=== PATIENT | female | born 1990 | race Caucasian/White ===

== ENCOUNTER → 2016-12-17 | Outpatient (CLI) | payer OTHER ==
[~2016-12-17] MED LIST: AMT25 PO; LEVO100T7 PO; MELO15TA4 PO; OMEP40CA41 PO; VTMD PO; ZLF/50 PO
[2016-12-17 13:08] LABS: BASO % 0.1 %; BASO ABS # 0.01 K/uL (0-0.2); COMPLETE YES; EOS % 0.7 %; HEMATOCRIT 41.5 % (37-47); IG% 0.2 %; LYMPH % 25.4 %; LYMPH ABS # 2.17 K/uL (1.2-3.4); MEAN CELL VOLUME 94.1 fL (80-100); MEAN CORPUSCULAR HEMOGLOBIN 33.6 pg (25-34); MEAN CORPUSCULAR HGB CONC 35.7 g/dl (32-36); MEAN PLATELET VOLUME 11.1 fL (7.4-10.4); MONO % 5.5 %; NEUT % 68.1 %; PLATELET COUNT 206 K/uL (130-400); RED BLOOD COUNT 4.41 M/uL (4.2-5.4); WHITE BLOOD COUNT 8.54 K/uL (4.8-10.8)
[2016-12-17 13:20] LABS: ALT/SGPT 19 U/L (12-78); BLOOD UREA NITROGEN 8 mg/dl (7-18); BUN/CREATININE RATIO 13.3 (10-20); C-REACTIVE PROTEIN < 0.29 mg/dl (0-0.29); CALCIUM 9.5 mg/dl (8.5-10.1); CARBON DIOXIDE 25 mmol/L (21-32); CHLORIDE 106 mmol/L (98-107); CREATININE 0.57 mg/dl (0.60-1.20); GLUCOSE 79 mg/dl (70-99); POTASSIUM 3.3 mmol/L (3.5-5.1); SODIUM 139 mmol/L (136-145)
[2016-12-17 13:28] LABS: ALB/GLOB RATIO 1.4 (0.9-2); ALKALINE PHOSPHATASE 47 U/L (45-117); AST/SGOT 17 U/L (15-37); FERRITIN 88.1 ng/ml (8.0-388.0)
== END | disposition home or self-care (01) ==
LOC: C.LAB 11:30
DX: E03.9 Hypothyroidism, unspecified (principal); E55.9 Vitamin D deficiency, unspecified; R53.83 Other fatigue; Z13.220 Encounter for screening for lipoid disorders

== ENCOUNTER 2021-03-15 04:04 | Inpatient (IN) ==
[2021-03-15] MEDS ORDERED: LACTATED RINGER'S 1,000 ML IV PRN (04:10)
[2021-03-15] MEDS ORDERED: OXYTOCIN 30 UNITS/500 ML BAG IV PRN ×2 (04:10→05:48)
--- NOTE | 2021-03-15 04:14 | History & Physical Report ---
Date of Service March 15, 2021 Assessment & Plan (1) Supervision of normal intrauterine in primigravida: (2) Obesity affecting , antepartum: (3) Active labor at term: admit, iv, labs. she complains of urge to push, rechecked twice now ant lip, could not tolerate attempt to reduce. will see if can breathe through few ctx and then expect 2nd stage. fhts categ 1. History of Present Illness Chief Complaint: regular ctx and water broke in car Primary Care Provider: Josef Lagos Jr, DO 31yo at 39 wks ega presents to L&D with cc of regular painful contractions and water broke on way into hospital. No vb. PNC c/b 1. 2VC, normal echo 2. obesity PNL rh pos, ri, gbs neg OBH: g1 GYNH: nl paps no stds Allergies Allergy/AdvReac Type Severity Reaction Status Date / Time No Known Allergies Allergy Verified 03/15/21 04:13 Home Medications Medication Instructions Recorded Confirmed Type prenat.vits,blanca,bfz-fjxe-pbpft 1 tab PO DAILY 02/22/20 03/15/21 History sertraline 100 mg tablet 100 mg PO DAILY 02/22/20 03/15/21 History ondansetron HCl [Zofran] 4 mg PO Q4H PRN 08/22/20 03/15/21 History levothyroxine 100 mcg capsule 100 mcg PO DAILY 10/08/20 03/15/21 History Patient History Medical History (Updated 03/15/21 @ 04:44 by Eli Reyna MD, FACOG) Ankylosing spondylitis Lumbar spine x-ray (05/07/13): facet arthrosis of the lumbar spine, most pronounced at right L5-S1, preserved disc spaces Occasional LBP flares, Humira discontinued 5 years ago (d/t insurance issues) Anxiety and depression Hypothyroid Obesity Surgical History History of colonoscopy Woodrow teeth removed Family History Mother Thyroid disease Father Anemia Diabetes Uncle Anemia Social History Smoking Status: Former smoker Hx Alcohol Use: No Hx Substance Use: No Preferred Language: Filipino Beliefs That Will Affect Care: None marital status: Single marital status details: HETAL Tsai (41) [phone] Current Living Situation: Significant Other Current Living Situation Comment: lives with HETAL, 2 dogs current occupational status: unemployed current occupation: homemaker Feels Safe at Home: Yes Assistive Devices: None Review of Systems as per Subjective / HPI Physical Exam Constitutional: WD/WN, vitals as above Respiratory: normal respiratory effort, lungs clear to auscultation Cardiovascular: Rate/Rhythm: regular rate and regular rhythm Gastrointestinal (Abdomen): soft gravid nt Musculoskeletal: no edema nontender calves Neurologic: grossly normal Psychiatric: A+Ox3, euthymic affect Genitourinary: Manual OB Exam: + cervical dilation 6 cm, + cervical effacement 100% and + station 0 OB Exam Monitor Tracing: + external FHT monitor used (145 mod variability), + external uterine monitor used (q2), + category I and + normal FHT variability Coding Level of Care Code None Diagnoses Supervision of normal intrauterine in primigravida Z34.00 Obesity affecting , antepartum O99.210 Active labor at term
[2021-03-15 04:48] LABS: Hematocrit (blood only) 38.1 % (37-47); Hemoglobin 13.5 g/dL (12.0-16.0); Mean Corpuscular Hemoglobin 33.3 pg (25-34); Mean Corpuscular Hgb Conc 35.4 g/dL (32-36); Mean Corpuscular Volume 93.8 fL (80-100); Mean Platelet Volume 12.2 fL (7.4-10.4); Platelet Count 184 K/uL (130-400); RDW Coefficient of Variation 13.1 % (11.5-14.5); RDW Standard Deviation 44.9 fL (36.4-46.3); Red Blood Count 4.06 M/uL (4.2-5.4); White Blood Count 8.95 K/uL (4.8-10.8)
[2021-03-15] MEDS ORDERED: LIDOCAINE 1% LOCAL 20 ML VIAL ONE (05:33)
--- NOTE | 2021-03-15 05:45 | Labor Progress Brief Note ---
Date of Service March 15, 2021 Subjective reevaluated pt after cx reduced with pushing for some bright red bleeding. Assessment & Plan (1) Active labor at term: cont 2nd stage. anticipate soon. Admission and Anticipated Discharge Date Admission Date: March 15, 2021 Physical Exam Constitutional: WD/WN, vitals as above Genitourinary: Manual OB Exam: + cervical dilation 10 cm, + cervical effacement 100% and + station + 3 pushing effectively. bleeding not brisk, likely related to vaginal tissues. Results & Data ([facility]) Vital Signs (Past 12 Hours) Vital Signs Temp Resp 03/15/21 04:17 97.7 F 20 Coding Level of Care Code None Diagnoses Active labor at term
--- NOTE | 2021-03-15 05:52 | Delivery Summary ---
Vaginal Delivery Summary Date of Service March 15, 2021 Vaginal Delivery Summary and 2nd Degree LAC The patient dilated to complete and pushed to deliver a viable female infant Apgars 7 and 8 via over 2nd degree perineal laceration. Mouth and nose bulb suctioned at perineum. Shoulders and body rapidly delivered with ease. was vigorous and crying at . Cord clamped at 30 seconds of life and to maternal abdomen where the cord was then doubly clamped and cut. Placenta delivered spontaneously and intact. Hemostasis achieved with dilute pitocin and uterine massage. Cervix and sulci intact. Laceration repaired in layers with 3- 0 vicryl after 1% local lidocaine anesthesia. EBL 300 cc. Mother and baby stable recovery. [facility] Vaginal Delivery Charge Vaginal Delivery Codes: 55004 global code for the antepartum, delivery, and post- Delivery Type Details: and 2nd Degree LAC
[2021-03-15] MEDS ORDERED: OXYTOCIN 20 UNITS in LACTATED RINGER'S 1,000 ML IV SCH (06:00)
[2021-03-15] MEDS ORDERED: IBUPROFEN 600 MG TAB PO ONE (06:29)
[2021-03-15] MEDS ORDERED: BENZOCAINE 20% AER SPR 82.5 GM CAN EXT PRN (06:31)
[2021-03-15] MEDS ORDERED: HYDROCORTISONE ACETATE 25 MG SUPP PR PRN (06:31)
[2021-03-15] MEDS ORDERED: oxyCODONE/ACETAMINOPHEN 5mg/325mg TAB PO PRN (06:31)
[2021-03-15] MEDS ORDERED: DIPHTHERIA/TETANUS/PERTUSSIS 0.5 ML SYR/VIAL IM ONE (06:31)
[2021-03-15] MEDS ORDERED: SUPERCREAM 0.870% 15 GM JAR EXT PRN (06:31)
[2021-03-15] MEDS ORDERED: ACETAMINOPHEN 325 MG TAB PO PRN (06:31)
[2021-03-15] MEDS: DOCUSATE SODIUM 100 MG CAP PO SCH ×2 (07:39→20:09)
[2021-03-15] MEDS: PRENATAL VITAMIN 1 TAB PO SCH (07:39)
[2021-03-15] MEDS ORDERED: SERTRALINE HCL 100 MG TABLET PO SCH (09:00)
[2021-03-15 12:50] LABS: Blood Urea Nitrogen 8 mg/dl (7-18); Carbon Dioxide 24 mmol/L (21-32); Chloride 105 mmol/L (98-107); Potassium 4.1 mmol/L (3.5-5.1); Sodium 137 mmol/L (136-145)
[2021-03-15 12:51] LABS: Alanine Aminotransferase 17 U/L (12-78); Albumin Level 2.6 gm/dl (3.4-5.0); Aspartate Aminotransferase 28 U/L (15-37); BUN Creatinine Ratio 9.2 (10-20); Bilirubin Direct < 0.1 mg/dl (0-0.2); Calcium 9.4 mg/dl (8.5-10.1); Creatinine Clr Calc Pharmacy 122.3 ml/min; Est GFR (African American) 103.6 ml/min; Est GFR (Non-African American) 89.4 ml/min; Glucose 89 mg/dl (70-99); Hematocrit (blood only) 33.1 % (37-47); Hemoglobin 11.5 g/dL (12.0-16.0); Mean Corpuscular Hgb Conc 34.7 g/dL (32-36); Mean Corpuscular Volume 97.9 fL (80-100); Mean Platelet Volume 12.2 fL (7.4-10.4); Platelet Count 163 K/uL (130-400); RDW Coefficient of Variation 13.2 % (11.5-14.5); Red Blood Count 3.38 M/uL (4.2-5.4); White Blood Count 13.31 K/uL (4.8-10.8)
[2021-03-15 12:53] LABS: Albumin Globulin Ratio 0.8 (0.9-2); Alkaline Phosphatase 79 U/L (45-117); Bilirubin,Total 0.3 mg/dl (0.2-1); Globulin 3.1 gm/dl (2.5-4.0); Total Protein 5.7 gm/dl (6.4-8.2)
[2021-03-15] MEDS: IBUPROFEN 600 MG TAB PO PRN (20:09)
[2021-03-15] MEDS: LEVOTHYROXINE SODIUM 100 MCG TABLET PO SCH (20:10)
[2021-03-15] MEDS: SERTRALINE HCL 100 MG TABLET PO SCH (20:11)
[2021-03-16] MEDS ORDERED: LEVOTHYROXINE SODIUM 100 MCG TABLET PO SCH (06:30)
--- NOTE | 2021-03-16 07:08 | Obstetrical Progress Note ---
Date of Service March 16, 2021 Assessment & Plan (1) examination following vaginal delivery: doing well, routine care. did do extra cmp yesterday due to some elevated bps after delivery and were all normal. normal bps since. no concerning sx. rh pos, ri, . Day #:: 1 Subjective Ambulation: ambulating normally Voiding: no voiding problems Diet Tolerance:: regular diet Lochia:: Small Feeding Type:: breast feeding no pain issues doing well. Physical Exam Constitutional WD/WN, vitals as above Respiratory normal respiratory effort, lungs clear to auscultation Cardiovascular Rate/Rhythm: regular rate and regular rhythm Gastrointestinal (Abdomen) Inspection/Auscultation: abdomen normal to inspection Percussion/Palpation: abdomen soft Fundus firm 2cm down Musculoskeletal nt calves tr edema Neurologic grossly normal Psychiatric A+Ox3, euthymic affect Results & Data ([facility]) Vital Signs (Past 12 Hours) Vital Signs Temp Pulse Resp BP Pulse Ox 03/16/21 03:19 97.5 F L 61 16 130/80 97 03/15/21 23:33 97.9 F 77 16 139/75 97 03/15/21 19:41 98.4 F 84 18 135/87 96
[2021-03-16] MEDS: PRENATAL VITAMIN 1 TAB PO SCH (08:40)
[2021-03-16] MEDS: DOCUSATE SODIUM 100 MG CAP PO SCH ×2 (08:40→21:11)
[2021-03-16] MEDS: IBUPROFEN 600 MG TAB PO PRN ×3 (08:42→21:11)
[2021-03-16] MEDS: SERTRALINE HCL 100 MG TABLET PO SCH (21:11)
[2021-03-16] MEDS: LEVOTHYROXINE SODIUM 100 MCG TABLET PO SCH (21:11)
--- NOTE | 2021-03-17 05:34 | Obstetrical Progress Note ---
Date of Service <Kacie Seay DO - Last Filed: 03/17/21 06:40> March 17, 2021 Assessment & Plan <Kacie Seay DO - Last Filed: 03/17/21 06:40> (1) examination following vaginal delivery: 31 yo mother Hx hypothyroidism and ankylosing spondylitis day #2 following term . No complications during delivery, and no complications. Doing well and without complaints. without issue. Voiding and ambulating. Discharge today. Day #:: 2 Subjective <Kacie Seay DO - Last Filed: 03/17/21 06:40> Ambulation: ambulating normally Voiding: no voiding problems Diet Tolerance:: regular diet Lochia:: Small Feeding Type:: breast feeding 31 yo mother doing well today and without complaints. Voiding, ambulating. without difficulty. Review of Systems Constitutional: denies fever, chills, sweats, headache Respiratory: denies SOB, difficulty breathing Cardiac: denies CP, chest palpitations, chest pressure Breast: denies breast pain : denies dysuria Physical Exam <Kacie Seay DO - Last Filed: 03/17/21 06:40> General: patient is alert and oriented, in NAD Cardiac: +S1/S2, no murmurs rubs or gallops Respiratory: lungs CTA b/l, anteriorly and posteriorly, no wheezes rales or rhonchi, no increased work of breathing, symmetric chest rise, no respiratory distress Abdomen: soft, NT, +bowel sounds Uterus: uterine fundus firm, palpable below the umbilicus Lower Extremities: no LE edema or swelling, no deep calf pain, Adrian's sign negative b/l Results & Data ([facility]) <Kacie Seay DO - Last Filed: 03/17/21 06:40> Vital Signs (Past 12 Hours) Vital Signs Temp Pulse Resp BP Pulse Ox 03/17/21 00:10 36.6 C 62 16 122/78 98 <Nora Mendieta MD - Last Filed: 03/17/21 07:19> Co-Signing Physician Notes Resident Physician Supervision Note: I interviewed and examined the patient. Discussed with Dr. Seay and agree with findings and plan as documented in the note. Any exceptions or clarifications are listed here: PP2 doing well. Had elevated BPs right at and immediately after delivery but have been normal since, no s/s pre-eclampsia. Exam benign and wnl, stable for d/c home today. S/s pre-eclampsia reviewed, aware to call if they develop Documented By: Nora Mendieta MD Resident Activity Tracking <Kacie Seay, DO - Last Filed: 03/17/21 06:40> Resident Involvement: Resident Care Provided Care Provided: OB Delivery
[2021-03-17] MEDS: DOCUSATE SODIUM 100 MG CAP PO SCH (08:37)
[2021-03-17] MEDS: PRENATAL VITAMIN 1 TAB PO SCH (08:37)
== END 2021-03-17 10:10 | disposition home or self-care (01) | DRG 807 ==
LOC: OPB 04:04 → 4S1 04:08 → 4S2 09:15